=== PATIENT | female | born 2000 | race Caucasian/White ===

== ENCOUNTER 2023-06-23 06:20 | Emergency (ER) | payer OTHER, SELFPAY ==
[2023-06-23 08:36] LABS: SARS-CoV-2 NAA Rapid Test Not Detected (NotDetected)
== END 2023-06-23 07:57 | disposition home or self-care (01) ==
LOC: CSHERS 06:20
DX: J02.0 Streptococcal pharyngitis (principal); F17.200 Nicotine dependence, unspecified, uncomplicated; F17.290 Nicotine dependence, other tobacco product, uncomplicated; Z20.822 Contact with and (suspected) exposure to COVID-19
CPT/HCPCS: 87081; 87430; 99283

== ENCOUNTER 2024-07-29 08:10 | Emergency (ER) | payer SELFPAY | END 2024-07-29 08:47 | disposition home or self-care (01) | LOC: CSHERS 08:10 | DX: J06.9 Acute upper respiratory infection, unspecified (principal); B97.89 Other viral agents as the cause of diseases classified elsewhere; F17.290 Nicotine dependence, other tobacco product, uncomplicated; Z55.0 Illiteracy and low-level literacy | CPT/HCPCS: 99283 ==